=== PATIENT | female | born 1990 | race Caucasian/White ===

== ENCOUNTER 2017-01-21 22:05 | Inpatient (IN) ==
[2017-01-21] MEDS ORDERED: CEFAZOLIN PREMIX (MC ONLY) 2 GM/50 ML BAG IV ONE (22:46)
[2017-01-21] MEDS ORDERED: FAMOTIDINE PREMIX 20 MG/50 ML BAG IV ONE (22:46)
[2017-01-21] MEDS ORDERED: CITRIC ACID/SODIUM CITRATE 30ml PO ONE (22:46)
[2017-01-21] MEDS ORDERED: LR 1,000 ML IV SCH (23:00)
[2017-01-22] MEDS: OXYTOCIN DRIP 30 UNIT/500 ML ML IV SCH ×4 (00:28→15:56)
[2017-01-22] MEDS ORDERED: MORPHINE SULFATE PF 5mg/10ml INJ (Duramorph) ONE (00:49)
[2017-01-22] MEDS ORDERED: FentaNYL 100 MCG/2 ML INJECTION ONE (00:49)
[2017-01-22] MEDS ORDERED: SALINE FLUSH 10ml SYRINGE IVF PRN (01:56)
[2017-01-22] MEDS ORDERED: HYDROCORTISONE 2.5% CREAM 30gm RECTALLY PRN (01:56)
[2017-01-22] MEDS ORDERED: ONDANSETRON 4 MG/2 ML INJECTION IVP PRN (01:56)
[2017-01-22] MEDS ORDERED: ACETAMINOPHEN 500 MG TABLET PO PRN (01:56)
[2017-01-22] MEDS ORDERED: DiphenhydrAMINE 25 MG CAPSULE PO PRN (01:56)
[2017-01-22] MEDS ORDERED: SIMETHICONE 80 MG CHEWABLE TABLET PO PRN (01:56)
--- NOTE | 2017-01-22 02:13 | Anesthesia Preoperative Report ---
Anesthesia Epidural/Spinal Rec - Date and Time Date: 01/21/17 Preoperative Diagnosis: previous Procedure: Plan: Spinal - Vital Signs Vital Signs: Temp Pulse Resp BP 97.6 F 82 18 134/72 01/21/17 23:12 01/21/17 23:12 01/21/17 23:12 01/21/17 23:12 /Para: P:2 - Medictaions & Allergies Inpatient Medications: Current Medications Acetaminophen (Tylenol) 500 - 1,000 mg PO Q4H PRN PRN Reason: Pain Acetaminophen/Hydrocodone Bitart ([place] 5/325) 1 - 2 tab PO Q4H PRN PRN Reason: Pain Citric Acid/Sodium Citrate (Oracit) 30 ml PO PREOP ONE Stop: 01/21/17 22:47 Last Admin: 01/21/17 23:09 Dose: 30 ml Diphenhydramine HCl (Benadryl) 25 - 50 mg PO Q6H PRN PRN Reason: Itching Docusate Calcium (Surfak) 240 mg PO DAILY [facility] Hydrocortisone (Anusol-Hc 2.5% Cream) 1 applic RECTALLY PRN PRN PRN Reason: Hemorrhoids Cefazolin Sodium/Dextrose (Kefzol Premix (Mc Only)) 2 gm in 50 mls @ 100 mls/ hr IV PREOP ONE Stop: 01/21/17 23:15 Last Admin: 01/21/17 23:42 Dose: 100 mls/hr Famotidine/Sodium Chloride (Pepcid Premix) 20 mg in 50 mls @ 100 mls/hr IV PREOP ONE Stop: 01/21/17 23:15 Last Infusion: 01/21/17 23:30 Dose: Infused Lactated Ringer's (Lactated Ringers) 1,000 mls @ 1,000 mls/hr IV .Q1H PITO Stop: 01/21/17 23:59 Last Admin: 01/21/17 23:08 Dose: 1,000 mls/hr Oxytocin (Pitocin Drip) 30 unit in 500 mls @ 0 mls/hr IV .Q0M PITO; As Directed PRN Reason: Protocol Last Admin: 01/22/17 01:02 Dose: 1 mls/hr Oxytocin (Pitocin Drip) 30 unit in 500 mls @ 50 mls/hr IV .Q10H PITO Stop: 01/22/17 21:59 Ibuprofen (Motrin) 800 mg PO Q8H PRN PRN Reason: Pain Magnesium Hydroxide (Mom) 30 ml PO HS PRN PRN Reason: Constipation Ondansetron HCl (Zofran) 4 mg IVP Q8H PRN PRN Reason: Nausea Simethicone (Mylicon) 80 mg PO PCHS PITO Simethicone (Mylicon) 80 mg PO PCHS PRN PRN Reason: Gas Sodium Chloride (Iv Flush) 10 - 80 ml IVF PRN PRN PRN Reason: Flushing Allergies/Adverse Reactions: Allergies Allergy/AdvReac Type Severity Reaction Status Date / Time No Known Allergies Allergy Unverified 09/05/16 17:04 - Home Medications Home Medications: Home Medications Medication Instructions Recorded Confirmed Type Pnv95/Ferrous Fumarate/FA 1 tab PO DAILY #90 tab 09/05/16 History [ Tablet] - Medical History Respiratory: DENIES: Asthma Cardiovascular: DENIES: Hypertension (eclampsia with first . none this ) Gastrointestional: DENIES: Gastroesophageal Reflux Disease Other History: Reports: Now DENIES: Anesthesia Reactions - Surgical History Anesthesia Reactions: None Hx Family Anesthesia Reaction: No History of Motion Sickness: No - Social History Second Hand Exposure: Yes Substance Use Type: does not use Alcohol Intake Frequency: does not drink - Pertinent Findings Lab Data: CBC and BMP 01/21/17 23:02 - Physical Exam Respiratory Exam: lungs clear Cardiovascular Exam: regular rate and rhythm - Airway Assessment Mallampati Score: II TMD: 2 Fingerbreadths Neck Extension: good Overall Assessment: no airway concerns - ASA ASA Score: 2, E - Discussion Discussion: Discussed risks/options/alternatives of anesthesia and questions answered. Patient consents. Nursing pain assessment noted. Anesthesia Discussion: spouse Attestation Statement: Prior to the delivery of any anesthetic medication, I examined the patient, developed the plan, obtained the patient's consent and discussed the risk and benefits of the procedure with the patient/guardian.
[2017-01-22] MEDS ORDERED: NALOXONE 2 MG/2 ML INJECTION PFS IVP PRN (02:15)
[2017-01-22] MEDS: D5LR 1,000 ML IV SCH ×2 (02:45→15:56)
[2017-01-22] MEDS: IBUPROFEN 800 MG TABLET PO PRN ×3 (04:00→21:17)
--- NOTE | 2017-01-22 07:45 | Anesthesia Preoperative Report ---
Anesthesia Epidural/Spinal Rec - Date and Time Date: 01/22/17 Procedure: Plan: Spinal - Vital Signs Vital Signs: Temp Pulse Resp BP 97.6 F 82 18 134/72 01/21/17 23:12 01/21/17 23:12 01/21/17 23:12 01/21/17 23:12 /Para: P:2 - Medictaions & Allergies Inpatient Medications: Current Medications Citric Acid/Sodium Citrate (Oracit) 30 ml PO PREOP ONE Stop: 01/21/17 22:47 Last Admin: 01/21/17 23:09 Dose: 30 ml Cefazolin Sodium/Dextrose (Kefzol Premix ( Only)) 2 gm in 50 mls @ 100 mls/ hr IV PREOP ONE Stop: 01/21/17 23:15 Last Admin: 01/21/17 23:42 Dose: 100 mls/hr Famotidine/Sodium Chloride (Pepcid Premix) 20 mg in 50 mls @ 100 mls/hr IV PREOP ONE Stop: 01/21/17 23:15 Last Infusion: 01/21/17 23:30 Dose: Infused Lactated Ringer's (Lactated Ringers) 1,000 mls @ 1,000 mls/hr IV .Q1H PITO Stop: 01/21/17 23:59 Last Admin: 01/21/17 23:08 Dose: 1,000 mls/hr Oxytocin (Pitocin Drip) 30 unit in 500 mls @ 0 mls/hr IV .Q0M PITO; As Directed PRN Reason: Protocol Last Admin: 01/22/17 01:02 Dose: 1 mls/hr Allergies/Adverse Reactions: Allergies Allergy/AdvReac Type Severity Reaction Status Date / Time No Known Allergies Allergy Unverified 09/05/16 17:04 - Home Medications Home Medications: Home Medications Medication Instructions Recorded Confirmed Type Pnv95/Ferrous Fumarate/FA 1 tab PO DAILY #90 tab 09/05/16 History [ Tablet] - Pertinent Findings Lab Data: CBC and BMP 01/21/17 23:02 - Discussion Discussion: Discussed risks/options/alternatives of anesthesia and questions answered. Patient consents. Nursing pain assessment noted. Attestation Statement: Prior to the delivery of any anesthetic medication, I examined the patient, developed the plan, obtained the patient's consent and discussed the risk and benefits of the procedure with the patient/guardian.
[2017-01-22] MEDS: DOCUSATE CALCIUM 240 MG CAPSULE PO SCH (09:34)
[2017-01-22] MEDS: SIMETHICONE 80 MG CHEWABLE TABLET PO SCH ×4 (09:35→23:30)
--- NOTE | 2017-01-22 11:33 | Anesthesia Postoperative Note ---
- Date and Time Date: 01/22/17 Time: 11:33 - Status Patient Participated in Evaluation: Patient Participated in Person Vital Signs: Temp Pulse Resp BP Pulse Ox 98.1 F 87 18 115/69 99 01/22/17 10:15 01/22/17 10:15 01/22/17 10:15 01/22/17 10:15 01/22/17 10:15 Respiratory Function: Airway Patent Cardiovascular Function: Regular Pulse Mental Status: Alert and Oriented Pain Intensity: 0 Hydration: Taking PO Fluids Complications During Recover: None Apparent - Follow-Up Instructions Instructions: Per Surgeon
--- NOTE | 2017-01-22 12:39 | Operative Note ---
DATE OF SURGERY 01/21/2017 PREOPERATIVE DIAGNOSES 1. 38 week 2 day intrauterine . 2. Previous . 3. Spontaneous rupture of membranes. 4. Desires permanent sterilization. 5. Prolonged rupture of membranes. POSTOPERATIVE DIAGNOSES 1. 39 week 2 day intrauterine . 2. Previous . 3. Spontaneous rupture of membranes. 4. Extensive anterior abdominal wall adhesions to the anterior wall of uterus requiring greater than 30 minutes of adhesiolysis. PROCEDURES PERFORMED 1. Repeat low transverse section and greater than 30 minutes of extensive adhesiolysis. 2. Bilateral tubal ligation by modified Florentin technique. SURGEON Dr. Gold HAND BRUSH FILLER Dr. Kaitlin Cuadra ANESTHESIA Spinal. COMPLICATIONS None. EBL 1250 mL. IV FLUIDS 1500 mL crystalloid. URINE OUTPUT 500 mL clear urine at end of procedure. INDICATIONS 26-year-old G3, P2 at 38 weeks 2 days EGA with prior low transverse section x 2 who presented to the hospital with spontaneous rupture of membranes approximately eight hours prior to presentation without spontaneous onset of labor. FINDINGS Female infant in cephalic presentation. Dr. Perez was present at delivery. Apgars 8/9. Weight 3088 g (6 pounds 12.9 oz). The entire lower uterine segment was found to be adhesed to the anterior abdominal wall, most notably to the rectus muscles. There were also extensive adhesions at the left fallopian tube and ovary as well as two thick nonobstructing omental adhesions to the anterior uterus. The right ovary and tube were essentially within normal limits. NARRATIVE OF PROCEDURE After verbal and written informed consent, the patient was taken to the operating room where spinal anesthesia was placed and found to be adequate. She was prepped and draped in the usual sterile fashion and placed in dorsal supine position with left lateral tilt. A Pfannenstiel skin incision was made with a scalpel and carried through to the underlying layer of fascia. The fascia was then incised in the midline and the incision was extended laterally using Arvizu scissors. The superior aspect of the fascial incision was then grasped using Trini clamps x 2, elevated and the underlying rectus muscles were dissected off bluntly and sharply. Attention was then turned to the inferior aspect of the incision which in a similar fashion was grasped, tented up with Trini clamps x 2 and the rectus muscles were dissected off bluntly and sharply. Rectus muscles were then grasped with Allis clamps x 2 and manually in the midline at which time peritoneum was identified and entered sharply with Metzenbaum scissors. At this time also the entire lower uterine segment was noted to be adhesed to the anterior abdominal wall, most notably to the posterior aspect of the rectus muscle. Greater than 30 minutes was then required to be spent in the task of adhesiolysis in order to make sure there would be enough room for delivery of the . Despite the extensive adhesions there was good visualization of the bladder which was found to be quite low in the abdomen. A bladder blade was then inserted and the uterine incision was made well above the bladder reflection. The lower uterine segment was incised in a transverse fashion using a scalpel. The uterine incision was extended laterally using manual traction. The placenta was found to be anterior and at the level of and just above the incision. The infant's head was easily elevated out of the pelvisand delivered atraumatically followed by the anterior and posterior shoulders and the remainder of the infant was delivered without any difficulty. There was no nuchal cord noted. The cord was doubly clamped and cut by Dr. Cuadra and the was handed off to Dr. Perez for further stimulation. The baby was vigorous already at the time of cord clamp. The placenta was then removed manually and the uterus was exteriorized and cleared of all clots and debris. The uterine incision was then closed using 0- Monocryl in a running locking fashion. 2-0 chromic was then used to reapproximate several areas of the vesicouterine peritoneum and to provide extra stability to the incision as well as reinforce hemostasis. Attention was then turned to the procedure of the tubal ligation by modified Florentin technique. The right fallopian tube and ovary were identified by following the tube from the uterus up out to the fimbria. The tube was grasped at the midline with a Babita and a 2-cm knuckle of tube was created by tying with 0-chromic. 2-0 silk was then used to clamp off the proximal and distal ends of the tube. That segment of tube was then excised and sent to Pathology. The left tube was then identified in a similar fashion. There were significant adhesions on the left fallopian tube and ovary. Lysis of adhesions was required in order to free the tube enough to perform the procedure but after that was accomplished the identical procedure was then performed on the left fallopian tube and the excised segment was sent to pathology. Once hemostasis was achieved, the uterus was then returned to the abdomen and the gutters were cleared of all clots and debris. The omentum was re-examined to assure no bleeding or hematoma formation had occurred as a result of the surgery & the lysis of the adhesed areas from the anterior aspect of the uterus. The anterior uterine wall closures were visualized and found to be hemostatic. Due to the additional layers of closure required after the adhesiolysis, we did go ahead and place Interceed prior to exiting the abdomen. The peritoneum was then closed using 2-0 Vicryl. The fascia was reapproximated using 0-Vicryl in a running fashion. The skin was closed using 4-0 Monocryl in a subcuticular stitch. The patient tolerated the procedure well and was taken to the recovery room in stable condition. She and the baby are both doing well at the time of this dictation. MELIDA
--- NOTE | 2017-01-22 18:24 | OB/GYN Progress Note ---
OB-PP Progress Note - General PPD0 POD:: Post Op Check Weeks: 38 Days: 3 Maternal Group B Strep: Negative Maternal blood type: A+ Maternal Rubella Status: Immune - Subjective Date: 01/22/17 Lochia: Minimal Pain: contolled Voiding: voiding Nausea or Vomiting Present: No - Objective Vital Signs: Last Vital Signs Temp 98.0 F 01/22/17 15:25 Pulse 88 01/22/17 15:25 Resp 18 01/22/17 15:25 BP 107/61 01/22/17 15:25 Pulse Ox 99 01/22/17 15:25 Urine Output: good General: alert and oriented Cardiovascular: regular rate,rhythm Respiratory: non-labored Respiratory Auscultation: clear bilaterally Abdomen: fundus firm, soft, non-distended, tender, no rebound, no guarding Incision: normal, intact, warm, dressed Extremities: non-tender Edema: none Laboratory: Laboratory Results - last 24 hr 01/21/17 01/21/17 01/22/17 23:02 23:02 07:08 WBC 9.8 8.9 RBC 4.02 2.95 L Hgb 11.3 L 8.1 L D Hct 33.3 L 24.7 L D MCV 82.8 83.7 MCH 28.1 27.5 MCHC 33.9 32.8 RDW Std Deviation 38.9 38.8 Plt Count 172 125 L MPV 11.5 11.5 Immature Gran % (Auto) 0.5 Neut % (Auto) 74.2 H Lymph % (Auto) 19.7 L Wilbarger % (Auto) 4.9 Eos % (Auto) 0.5 Baso % (Auto) 0.2 Neut # 7.3 Lymph # 1.9 [place]ger # 0.5 Eos # 0.1 Baso # 0.0 Abs Immat Gran (auto) 0.05 H Blood Type A Positive Antibody Screen Negative 01/22/17 13:08 WBC 9.8 RBC 3.37 L Hgb 9.3 L D Hct 28.1 L D MCV 83.4 MCH 27.6 MCHC 33.1 RDW Std Deviation 38.9 Plt Count 166 MPV 10.8 Immature Gran % (Auto) Neut % (Auto) Lymph % (Auto) [place] % (Auto) Eos % (Auto) Baso % (Auto) Neut # Lymph # [place] # Eos # Baso # Abs Immat Gran (auto) Blood Type Antibody Screen - Assessment Assessment: SP, Repeat C/S, Tubal Ligation, Anemia - Plan Plan: routine care, continue PNV Expected date of discharge: 01/24/17
[2017-01-22] MEDS: HYDROCODONE/APAP 5mg/325mg TABLET PO PRN (21:16)
[2017-01-23] MEDS: D5LR 1,000 ML IV SCH (00:12)
[2017-01-23] MEDS: DOCUSATE CALCIUM 240 MG CAPSULE PO SCH (09:35)
[2017-01-23] MEDS: IBUPROFEN 800 MG TABLET PO PRN ×2 (09:35→18:35)
[2017-01-23] MEDS: HYDROCODONE/APAP 5mg/325mg TABLET PO PRN ×2 (09:36→22:02)
[2017-01-23] MEDS: SIMETHICONE 80 MG CHEWABLE TABLET PO SCH ×4 (11:49→22:03)
--- NOTE | 2017-01-23 17:27 | OB/GYN Progress Note ---
OB - PN: A/P - Plan day: 1 Plan: routine postop care - Time Spent With Patient Total time spent is greater than 50% in coordination of care (as documented) at patient's floor/unit and/or counseling patient: less than 15 minutes (Pt doing well. No major concerns. Plan to d/c to home tomorrow & follow up in office next week for incision check.) OB - PN: Subj Patient comments: no complaints, pain well controlled, tolerating diet, flatus present baby status: doing well, bottle feeding well [place] feeding status: exclusively bottle feeding Narrative: Minimal lochia. Sherie po/amb/void. OB - PN: Obj Exam Vital signs: Temp Pulse Resp BP Pulse Ox 98.0 F 93 16 100/64 98 01/23/17 13:44 01/23/17 13:44 01/23/17 13:44 01/23/17 13:44 01/23/17 13:44 - Constitutional no acute distress, well nourished - Routine Respiratory Exam Present: CTA bilaterally - Routine Cardiovascular Exam Present: RRR, no murmur - Routine Abdominal Exam Present: soft, tenderness (appropriate) Fundus: Present: firm - Routine Extremities Exam Present: no edema. Absent: Maksim's sign - Urinary Catheter Management Urethral Cath placed during this visit: yes, but has since been removed by the nurse Insertion date: 01/22/17 Insertion time: 00:03 Removal date: 01/22/17 Removal time: 12:20 OB - PN: Obj Data - Labs CBC & Chem 7: 01/22/17 13:08
[2017-01-24] MEDS: IBUPROFEN 800 MG TABLET PO PRN (06:12)
[2017-01-24] MEDS: HYDROCODONE/APAP 5mg/325mg TABLET PO PRN (08:22)
[2017-01-24] MEDS: DOCUSATE CALCIUM 240 MG CAPSULE PO SCH (09:10)
[2017-01-24] MEDS: SIMETHICONE 80 MG CHEWABLE TABLET PO SCH ×2 (09:10→14:39)
[2017-01-24] MEDS ORDERED: TETANUS, DIPHTHERIA, a PERTUSSIS (Tdap) 0.5ml INJECTION IM ONE (13:25)
--- NOTE | 2017-01-24 13:34 | Discharge Summary ---
Discharge Plan - Med Rec/Dispo Prescriptions: New Hydrocodone/APAP 5/325 [[place] 5/325] 1 - 2 tab PO Q4H PRN #60 tablet PRN Reason: Pain Ibuprofen [Motrin] 800 mg PO Q8H PRN #60 tablet PRN Reason: Pain Docusate Calcium [Surfak] 240 mg PO DAILY capsule Continue Pnv95/Ferrous Fumarate/FA [ Tablet] 1 tab PO DAILY #90 tab Discharge Instructions/Outpatient Orders: Final Provider Discharge Instructions Location: Determined By Patient - Disposition 01 Discharged Home, Self-Care
--- NOTE | 2017-01-24 14:10 | Discharge Summary ---
Discharge Information Date of admission: 01/21/17 22:47 Anticipated date of discharge: 01/24/17 Attending Physician: Emilia Gold MD Primary care physician: Emilia Gold MD Consults: 01/22/17 01:56 Nurse Consult [CONS] Routine Comment: - Discharge Diagnosis (1) Qualifiers: Weeks of gestation: 38 weeks Qualified Code(s): Z3A.38 - 38 weeks gestation of Status: Acute - Procedures Procedures: Repeat LTCS > 30 min adhesiolysis Bilateral Tubal Ligation by Modified Crowley technique Spinal anesthesia - Laboratory Labs: 01/22/17 13:08 History of Present Illness HPI: 01/24/17 14:08 Pt is a 26yo who presented at 38-2 for SROM over 8 hours prior to presentation. She had prior CS x2. She underwent RLTCS w/ extensive ROBERT & tolerated the procedure very well. Her course has been uneventful & she is doing well today & is w/o complaints. Hospital Course This is a general summary of the patient's hospital course. For more details refer to the complete medical record. Hospital course: Discharge exam: Abd: FF, NTTP, below umb Inc: CDI Ext: no edema, neg Maksim's bilaterally Time spent with patient: 25 - 35 minutes Discharge Plan - Med Rec/Dispo Referrals/Follow Up: Emilia Gold MD [Primary Care Provider] - [facility] Instructions: MC Delivery with Tubal Additional Instructions: Follow up with Dr. Gold on February 02 at 9 a.m. Prescriptions: New Hydrocodone/APAP 5/325 [[place] 5/325] 1 - 2 tab PO Q4H PRN #60 tablet PRN Reason: Pain Ibuprofen [Motrin] 800 mg PO Q8H PRN #60 tablet PRN Reason: Pain Docusate Calcium [Surfak] 240 mg PO DAILY capsule Continue Pnv95/Ferrous Fumarate/FA [ Tablet] 1 tab PO DAILY #90 tab Discharge Instructions/Outpatient Orders: Final Provider Discharge Instructions Location: Determined By Patient - Disposition 01 Discharged Home, Self-Care
== END 2017-01-24 14:53 | disposition home or self-care (01) | DRG 766 ==
LOC: OBOBS 22:05 → MC 22:06
PROVIDERS: ADMIT Family Medicine; ATTEND Family Medicine